=== PATIENT | female | born 1965 | race Caucasian/White ===

== ENCOUNTER 2017-10-25 06:13 | Emergency (ER) | payer OTHER ==
[~2017-10-25] VITALS: Ht 165.1 cm; Wt 79.4 kg
[~2017-10-25 06:13] MED LIST: ADVAIR 250-501 EACH INH; AMLODIPINE BESYL5 M1 PO; FISH OIL1000 MG PO; LASIX20 M1 PO; LEVOTHYROXINE0.05 M1 PO; LEVOTHYROXINE137 MCG PO; MAGNESIUM OXID400 MG PO; NAPROSYN 500 M500 MG PO; VITAMIN B11000 MCG/M PO; VITAMIN C500 M3 PO
[2017-10-25 06:44] LABS: ABSOLUTE BASOPHIL COUNT 0 /CUMM (0.0-0.2); ABSOLUTE EOSINOPHIL COUNT 0 /CUMM (0.0-0.7); ABSOLUTE GRANULOCYTE CT 14.8 /CUMM (1.4-6.5); ABSOLUTE LYMPH COUNT 1.7 /CUMM (1.2-3.4); ABSOLUTE MONOCYTE COUNT 0.8 /CUMM (0.10-0.60); BASOPHIL % 0.1 % (0.0-2.0); EOSINOPHIL % 0.1 % (0-5); HEMATOCRIT 46.8 % (37-47); MEAN CORPUSCULAR HGB 30.3 PG (27.0-31.0); MEAN CORPUSCULAR HGB CONC 33.7 G/DL (33.0-37.0); MEAN CORPUSCULAR VOLUME 89.9 FL (81.0-99.0); MEAN PLATELET VOLUME 9.3 FL (7.4-10.4); PLATELET COUNT 237 /CUMM (130-400); RBC DISTRIBUTION WIDTH 12.8 % (11.5-14.5); RED BLOOD CELL CT 5.21 /CUMM (4.20-5.40); WHITE BLOOD CELL COUNT 17.3 /CUMM (4.8-10.8)
[2017-10-25 06:54] LABS: GRANULOCYTE % 85.7 % (42.2-75.2)
--- NOTE | 2017-10-25 07:36 | RADIOLOGY REPORT ---
EXAMINATION: XR PORTABLE CHEST CLINICAL INFORMATION: Shortness of breath, fever COMPARISON: 09/06/2017 TECHNIQUE: Portable frontal view of the chest was obtained. FINDINGS: Lung volumes are symmetric. In comparison to the prior examination there is a new region of heterogeneous opacity at the right lung base, suspicious for pneumonia. There is minimal opacity at the left base which may reflect atelectasis. No evidence of pneumothorax or pleural effusion. The cardiomediastinal contour is unremarkable. No acute osseous findings are seen. IMPRESSION: New region of right basilar opacity, suspicious for pneumonia.
--- NOTE | 2017-10-25 07:39 | ED CARDIAC/CP/PALPITATIONS ---
History of Present Illness General Chief Complaint: General Adult Stated Complaint: BIBA FOR EVAL OF FLU LIKE SYMPTOMS Source: patient, family Exam Limitations: no limitations Vital Signs & Intake/Output Vital Signs & Intake/Output Vital Signs Date Time Temp Pulse Resp B/P B/P Pulse O2 O2 Flow FiO2 Mean Ox Delivery Rate 10/25 0646 101.0 10/25 0630 90 Room Air 10/25 0617 101.0 87 20 113/55 94 Room Air Allergies Coded Allergies: NO KNOWN ALLERGIES (04/25/16) Triage Note: 52YO FEMALE TO RM 8 VIA AMB FROM HOME W/CO CP SINCE LAST NIGHT, SWOLLEN ANKLES AND FLU SX. UPON ARRRIVAL RA SAT = 90. LUNGS DIMINISHED ALL THROUGHOUT Triage Nurses Notes Reviewed? yes Onset: Abrupt Duration: hour(s): (2) Timing: single episode today Quality/Severity: sharp Location: right parasternal Radiation: no radiation Activities at Onset: none Prior Chest Pain/Card Workup: no prior chest pain Nitro Today/Relief: no nitro taken today Aspirin Today: no aspirin today Associated Symptoms: numbness of right hand : No HPI: 52 yo F with PMH of hypothyroidism comes to the ED for chest pain. The daughter aids in history taking. She states that her mom woke up around 5.30 this morning complaining of right sided chest pain. The patient describes her pain as piercing in her chest, 10/10 in severity (now 7/10), aggravated with walking and causing difficulty breathing, associated with numbness of her lips, right arm and left hand. She had some associated nausea. She sometimes gets acid reflux. At the time of interview, the patient had already gotten IV tylenol and mentioned that her pain had improved. (Dionna CRISOSTOMO,[facility]) Reconcile Medications Amlodipine Besylate 5 MG TABLET 1 TAB PO DAILY HEART (Reported) Azithromycin 250 MG TABLET 1 DP PO AD Pneumonia 2 the first day followed by 1 for days 2-5 Fluticasone/Salmeterol (Advair 250-50 Diskus) 1 EACH BLST.W.DEV 1 PUF INH BID ASTHMA (Reported) Furosemide (Lasix) 20 MG TABLET 1 TAB PO DAILY edema Ibuprofen 400 MG TABLET 1 TAB PO Q12P PRN Fever, muscle aches Levothyroxine Sodium 137 MCG TABLET 1 TAB PO DAILY THYROID (Reported) Pantoprazole Sodium (Protonix) 40 MG TABLET.DR 1 TAB PO DAILY AC ACID REFLUX (Deborah CRISOSTOMO,Ezekiel Walden) Past History Travel History Traveled to [place] past 21 day No Medical History Any Pertinent Medical History? see below for history Neurological: NONE EENT: NONE Cardiovascular: ?CARDIAC PROBLEM Respiratory: asthma Gastrointestinal: NONE Musculoskeletal: SLIPPED DISK Endocrine: hypothyroidism Blood Disorders: NONE Cancer(s): NONE VICE ADMIRAL/Reproductive: NONE Surgical History Surgical History: thyroidectomy Psychosocial History What is your primary language [place] Tobacco Use: Refused to answer Family History Hx Contributory? No (Bryan Villareal MD) Review of Systems Review of Systems Constitutional: Reports: chills, fever. EENTM: Reports: no symptoms. Respiratory: Reports: short of breath. Denies: cough. Cardiovascular: Reports: chest pain. GI: Reports: abdominal pain, nausea. Genitourinary: Reports: no symptoms. Musculoskeletal: Denies: joint pain. Skin: Reports: no symptoms. Neurological/Psychological: Reports: numbness. Hematologic/Endocrine: Reports: no symptoms. (Bryan Villareal MD) Physical Exam Physical Exam General Appearance: well developed/nourished, alert, awake, mild distress Head: atraumatic, normal appearance Eyes: Bilateral: normal appearance. Respiratory: normal breath sounds, lungs clear, right sided chest tenderness Cardiovascular: regular rate/rhythm Gastrointestinal: soft, non-tender Neurologic/Psych: awake, alert, oriented x 3 Skin: intact, normal color Core Measures ACS in differential dx? No CVA/TIA Diagnosis No Sepsis Present: No Sepsis Focused Exam Completed? No (Bryan Villareal MD) Progress Differential Diagnosis: musculoskeletal pain, pneumonia Plan of Care: Orders Procedure Date/time Status RAPID VIRAL INFLUENZA A 10/25 622 Complete TROPONIN LEVEL 10/25 620 Complete MAGNESIUM 10/25 620 Complete COMPREHENSIVE METABOLIC PANEL 10/25 620 Complete CBC WITHOUT DIFFERENTIAL 10/25 620 Complete B-TYPE NATRIURETIC PEP (BNP) 10/25 620 Complete EKG 10/25 616 Active Current Medications Sig/Candi Start time Last Medication Dose Stop Time Status Admin Pantoprazole Sodium 40 MG ONCE ONE 10/25 829 UNVr (Protonix) 10/25 0831 Laboratory Tests 10/25/17 06: Anion Gap 13, Estimated GFR > 60, BUN/Creatinine Ratio 18.6, Glucose 111 H, Calcium 10.1, Magnesium 1.5 L, Total Bilirubin 0.8, AST 21, ALT 30, Alkaline Phosphatase 74, Troponin I < 0.01, [id number] Pept 61.2, Total Protein 7.0, Albumin 4.6, Globulin 2.4, Albumin/Globulin Ratio 1.9, CBC w Diff MAN DIFF ORDERED, RBC 5.21, MCV 89.9, MCH 30.3, MCHC 33.7, RDW 12.8, MPV 9.3, Gran % 85.7 H, Lymphocytes % 9.7 L, Monocytes % 4.4, Eosinophils % 0.1, Basophils % 0.1, Absolute Granulocytes 14.8 H, Segmented Neutrophils 73, Band Neutrophils 5, Absolute Lymphocytes 1.7, Lymphocytes 15 L, Monocytes 7, Absolute Monocytes 0.8 H, Absolute Eosinophils 0, Absolute Basophils 0, Platelet Estimate ADEQUATE, Normocytic RBCs VERIFIED, Normochromic RBCs VERIFIED Microbiology 10/25 622 NASOPHARYN: Influenza Virus A & B Rapid Smear - COMP Initial ED EKG: NSR (Bryan Villareal MD) Departure Departure Disposition: HOME OR SELF CARE Condition: Stable Clinical Impression Primary Impression: Community acquired pneumonia Qualifiers: Laterality: right Lung location: lower lobe of lung Qualified Code: J18.1 - Lobar pneumonia, unspecified organism Referrals: Marcella Lewis APRN (PCP/Family) Additional Instructions: Please follow up with your scheduled appointment with your store clerk Dr Sharp today. Please follow up with your PCP within one week of discharge. Please return to the ED with any worsening symptoms or concerns. Departure Forms: Customer Survey General Discharge Information Prescriptions: Current Visit Scripts Azithromycin 1 DP PO AD #6 TAB 2 the first day followed by 1 for days 2-5 Ibuprofen 1 TAB PO Q12P PRN Fever, muscle aches #20 TAB Pantoprazole Sodium (Protonix) 1 TAB PO DAILY AC #30 TAB (Bryan Villareal MD) Resident Co-Sign Statement Statement: ED Attending supervision documentation- [X] I saw and evaluated the patient. I have also reviewed all the pertinent lab results and diagnostic results. I agree with the findings and the plan of care as documented in the Resident's documentation. [] I have reviewed the ED Record and agree with the Resident's documentation. [] Additions or exceptions (if any) to the Resident's note and plan are summarized below: [] (Deborah CRISOSTOMO,Ezekiel Walden) Critical Care Note Critical Care Note Critical Care Time: non-applicable (Dionna CRISOSTOMO,Bryan)
[2017-10-25] MEDS ORDERED: AZITHROMYCIN250 M1 PO (07:56)
[2017-10-25] MEDS ORDERED: IBUPROFEN400 M1 PO (07:56)
[2017-10-25] MEDS ORDERED: PROTONIX40 M3 PO (08:22)
[2017-10-25 08:45] VITALS: BP 118/74
== END 2017-10-25 08:46 ==
LOC: ERH 06:13
PROVIDERS: Emergency Medicine
DX: J18.9 Pneumonia, unspecified organism (principal); R07.9 Chest pain, unspecified; R20.0 Anesthesia of skin; R11.0 Nausea
CPT/HCPCS: 71045; 87804; 87804-59; 93005; 93010; 96374; 96375; J0131